=== PATIENT | male | born 1975 | race Hispanic/Latino ===

== ENCOUNTER 2017-05-07 19:24 | Inpatient (IN) | payer OTHER ==
[2017-05-07] MEDS ORDERED: NA CHLORIDE 0.9% 1,000 ML ONE (19:40)
[2017-05-07] MEDS ORDERED: RSI MEDICATION KIT IV ONE (19:40)
[2017-05-07 20:07] LABS: Absolute Lymphocytes (CBC) 3.9 K/uL (0.7-4.9); Absolute Monocytes 0.9 K/uL (0.1-1.3); Absolute Neutrophil 10.1 K/uL (1.8-8.0); Basophils % 1.7 % (0-1.3); Eosinophils % 3.2 % (0-4.4); Hematocrit 38.7 % (39.6-49.0); Lymphocytes % 24.9 % (15.3-44.8); MCH 30.6 pg (27.0-35.0); MCV 94.2 fL (80-100); MPV 9.9 fL (7.6-11.3); Monocytes % 5.8 % (3.3-12.3); RBC Red Blood Cell Count 4.11 M/uL (4.33-5.43)
[2017-05-07 20:10] LABS: Protime INR 0.96
--- NOTE | 2017-05-07 20:21 | RAD REPORT ---
EXAM DESCRIPTION: RAD - Chest Single View - 05/07/2017 8:14 pm CLINICAL HISTORY: Respiratory distress. COMPARISON: None. FINDINGS: Portable technique limits examination quality. Bilateral pulmonary opacities are noted, greater on the right, likely representing pulmonary edema. T he heart is moderately enlarged in size. Right-sided venous catheter has tip in the SVC. No displaced fractures. IMPRESSION: Moderate CHF versus volume overload pattern.
[2017-05-07 20:22] LABS: Potassium 5.4 mEq/L (3.6-5.0)
[2017-05-07 20:32] LABS: Albumin 3.2 g/dL (3.2-5.5); Bilirubin Direct 0.1 mg/dL (0-0.2); Bilirubin Total 0.5 mg/dL (0.3-1.2); CKMB Creatine Kinase MB 9.6 ng/ml (0.3-4.0); Magnesium 2.3 mg/dL (1.8-2.5); Protein, Total 7.4 g/dL (6.0-8.3)
[2017-05-07] MEDS ORDERED: PROPOFOL 1,000 MG/100 ML VIAL IV ONE (20:44)
[2017-05-07] MEDS ORDERED: MIDAZOLAM HCL 2 MG/2 ML INJ ONE ×3 (20:44→23:14)
--- NOTE | 2017-05-07 20:45 | EDPHYS ---
Physician Documentation [facility] Name: Jann De Jesus Age: 41 yrs Sex: Male : 1975 Arrival Date: 05/07/2017 Time: 19:35 Bed 3 Private MD: ED Physician Sim Pelayo HPI: 05/07 20:04 This 41 yrs old Male presents to ER via EMS with complaints of Respiratory Distress. tw4 20:04 The patient has shortness of breath at rest. Onset: The symptoms/episode began/occurred tw4 today. Duration: The symptoms are continuous, and are unchanged since they started, and are steadily getting worse. The patient's shortness of breath has no apparent modifying factors. Associated signs and symptoms: The patient has no apparent associated signs or symptoms. Severity of symptoms: At their worst the symptoms were severe in the emergency department the symptoms have improved mildly. The patient has experienced a previous episode. The patient has not recently seen a physician. Historical: - Allergies: 19:42 No Known Allergies; fc - Home Meds: 19:42 Lasix Oral [Active]; Amaryl Oral [Active]; calcium [Active]; Tums Oral [Active]; Plavix fc Oral [Active]; - PMHx: 19:42 Hypertension; CHF; Diabetes - NIDDM; ESRD; Hypocalcemia; fc - PSHx: 19:42 Heart stents; Right chest wall zofia; fc - Immunization history:: Last tetanus immunization: unknown. - Social history:: Smoking status: Patient/guardian denies using tobacco. ROS: 20:04 Constitutional: Negative for fever, chills, and weight loss, Cardiovascular: Negative tw4 for chest pain, palpitations, and edema, Abdomen/GI: Negative for abdominal pain, nausea, vomiting, diarrhea, and constipation, Back: Negative for injury and pain, MS/Extremity: Negative for injury and deformity, Skin: Negative for injury, rash, and discoloration. 20:04 Respiratory: Positive for cough, dyspnea on exertion, shortness of breath, wheezing, Negative for hemoptysis, orthopnea, pleurisy. Exam: 20:04 Constitutional: This is a well developed, well nourished patient who is awake, alert, tw4 and in no acute distress. Head/Face: Normocephalic, atraumatic. Chest/axilla: Normal chest wall appearance and motion. Nontender with no deformity. No lesions are appreciated. Cardiovascular: Regular rate and rhythm with a normal S1 and S2. No gallops, murmurs, or rubs. Normal PMI, no JVD. No pulse deficits. 20:04 Abdomen/GI: Soft, non-tender, with normal bowel sounds. No distension or tympany. No guarding or rebound. No evidence of tenderness throughout. Back: No spinal tenderness. No costovertebral tenderness. Full range of motion. MS/ Extremity: Pulses equal, no cyanosis. Neurovascular intact. Full, normal range of motion. Neuro: Awake and alert, GCS 15, oriented to person, place, time, and situation. Cranial nerves II-XII grossly intact. Motor strength 5/5 in all extremities. Sensory grossly intact. Cerebellar exam normal. Normal gait. 20:04 Respiratory: moderate respiratory distress is noted, Respirations: labored breathing, that is moderate, accessory muscle usage, that is moderate. Vital Signs: 19:20 BP 201 / 122; Pulse 128; Resp 24; Temp 97.7(A); Pulse Ox 90% on 100% CPAP; Weight 120.2 fc kg (R); Height 5 ft. 5 in. (165.10 cm) (R); Pain 0/10; 19:50 BP 137 / 87; Pulse 107; Resp 30; Pulse Ox 100% on BiPAP; aa1 20:15 BP 121 / 77; Pulse 110; Resp 32; Pulse Ox 100% on BiPAP; aj1 20:20 BP 153 / 78; Pulse 106; Resp 28; Pulse Ox 100% on BiPAP; aj1 20:24 BP 225 / 122; Pulse 133; Resp 23; Pulse Ox 100% on ETT vent; aj1 20:30 BP 245 / 142; Pulse 135; Resp 18; Pulse Ox 96% on ETT vent; aj1 20:33 BP 220 / 108; Pulse 120; Resp 18; Pulse Ox 98% on ETT vent; aj1 20:35 BP 102 / 91; Pulse 107; Resp 19; Pulse Ox 96% on ETT vent; aj1 20:45 BP 123 / 78; Pulse 107; Resp 18; Pulse Ox 96% on ETT vent; aj1 20:52 BP 123 / 78; Pulse 106; Resp 16; Pulse Ox 97% on ETT vent; aj1 21:22 BP 98 / 51; Pulse 103; Resp 16; Temp 96.6(C); Pulse Ox 100% on R/A; aa1 21:43 BP 140 / 80; Pulse 102; Resp 18; Temp 98.4(C); Pulse Ox 100% on ETT vent; aa1 21:57 BP 101 / 79; Pulse 167; Resp 16; Temp 98.6(C); Pulse Ox 100% on ETT vent; aa1 22:06 BP 111 / 70; Pulse 99; Resp 16; Pulse Ox 100% on ETT vent; aa1 22:37 BP 143 / 93; Pulse 114; Resp 16; Pulse Ox 100% on ETT vent; aa1 23:00 BP 110 / 76; Pulse 113; Resp 16; Temp 98.7(C); Pulse Ox 100% on ETT vent; aa1 19:20 Body Mass Index 44.10 (120.20 kg, 165.10 cm) fc 21:57 MD notified of change in cardiac rhythm aa1 Procedures: 20:58 Intubation: Ventilated with 100% NRB prior to procedure. O2 saturation prior to tw4 procedure was 98 %. Intubated orally using # 4 Miki blade with 7.5 mm ETT. was successful on first attempt. Ventilated with Ambu bag. Tube secured with ETT medina at left side of mouth measured 26 cm at teeth. Placement verified by CXR, CO2 detector with (+) color change, auscultating bilateral breath sounds, O2 saturation after procedure was 100 %. Patient tolerated well. MDM: 19:40 Patient medically screened. tw4 20:04 Differential diagnosis: Anemia asthma, CHF exacerbation, pneumonia, pulmonary edema, tw4 reactive airway disease, Sepsis. Antibiotic administration: Not indicated. Data reviewed: vital signs, nurses notes. 22:27 Data interpreted: playground monitor: rhythm is normal sinus rhythm, Pulse oximetry: tw4 Interpretation: normal. Physician consultation: Michaela Pedraza MD and will see patient in ED, would like consultation with Dr. Dr Emerson contacted at [phone] will schedule dialysis for tonight in the ICU. ED course: Pt intubated successfully without any difficulty. Pt sedation started with Propofol and Versed 2mg was added for sedation. ED course: Pt went into V tach and ws given 150 amiodarone and a drip was started. . 05/07 19:38 Order name: Basic Metabolic Panel; Complete Time: 20:41 tc3 05/07 19:38 Order name: BNP; Complete Time: 20:41 tc3 05/07 19:38 Order name: CBC with Diff; Complete Time: 20:09 tc3 05/07 19:38 Order name: Ckmb; Complete Time: 20:41 tc3 05/07 19:38 Order name: CPK; Complete Time: 20:41 tc3 05/07 19:38 Order name: LFT's; Complete Time: 20:41 tc3 05/07 19:38 Order name: Magnesium; Complete Time: 20:41 tc3 05/07 19:38 Order name: PT-INR; Complete Time: 20:30 tc3 05/07 19:38 Order name: Ptt, Activated; Complete Time: 20:30 tc3 05/07 19:38 Order name: Troponin (emerg Dept Use Only); Complete Time: 20:30 tc3 05/07 20:55 Order name: ABG Arterial Blood Gas; Complete Time: 20:58 EDMS 05/07 20:58 Order name: ABG Arterial Blood Gas EDMS 05/07 22:16 Order name: CMP tw4 05/07 22:32 Order name: ABG Arterial Blood Gas EDMS 05/07 19:38 Order name: XRAY Chest (1 view); Complete Time: 20:30 tc3 05/07 19:38 Order name: EKG; Complete Time: 19:39 tc3 05/07 19:38 Order name: Cardiac monitoring; Complete Time: 19:39 tc3 05/07 19:38 Order name: EKG - Nurse/Tech; Complete Time: 19:39 tc3 05/07 19:38 Order name: IV Saline Lock; Complete Time: 19:39 tc3 05/07 20:32 Order name: Chest Single View XRAY; Complete Time: 20:58 tw4 05/07 19:38 Order name: Labs collected and sent; Complete Time: 19:39 tc3 05/07 19:38 Order name: O2 Per Protocol; Complete Time: 19:39 tc3 05/07 19:38 Order name: O2 Sat Monitoring; Complete Time: 19:39 tc3 Administered Medications: 20:21 Drug: Etomidate 20 mg Route: IVP; Site: left forearm; aj1 20:25 Follow up: Response: No adverse reaction; Marked relief of symptoms aa1 20:22 Drug: Succinylcholine 100 mg Route: IVP; Site: left forearm; aj1 20:25 Follow up: Response: No adverse reaction; Marked relief of symptoms aa1 20:28 Drug: Propofol 5 mcg/kg/min Route: IV; Rate: calculated rate; Site: left forearm; aj1 23:00 Follow up: IV Status: Infusion continued upon admission aa1 20:32 Drug: Versed 2 mg Route: IVP; Site: left forearm; aj1 21:00 Follow up: Response: No change in condition aa1 20:32 Drug: Versed 2 mg Route: IVP; Site: left forearm; aj1 21:00 Follow up: Response: No adverse reaction; No change in condition aa1 21:00 Drug: fentaNYL (PF) 100 mcg Route: IVP; Site: right forearm; aj 21:15 Follow up: Response: No adverse reaction; No change in condition aa1 21:15 Drug: Versed 4 mg Route: IVP; Site: left forearm; aa1 21:30 Follow up: Response: No adverse reaction; Marked relief of symptoms aa1 21:55 Drug: VecuroNIUM 10 mg Route: IVP; Site: right antecubital; aa1 22:05 Follow up: Response: Marked relief of symptoms aa1 22:00 Drug: amiodarone 150 mg Route: IVP; Site: right forearm; aa1 22:10 Follow up: Response: Cardiac rhythm changed aa1 22:07 Drug: amiodarone 900 mg, D5W 500 ml Route: IVPB; Rate: 1 mg/min; Site: right forearm; aa1 23:00 Follow up: IV Status: Infusion continued upon admission aa1 Disposition: 05/07/17 20:44 Hospitalization ordered by Michaela Pedraza for Inpatient Admission. Preliminary diagnosis are Respiratory failure, unspecified, Pulmonary edema, End stage renal disease. - Bed requested for Intensive Care Unit. - Status is Inpatient Admission. aa1 - Condition is Serious. - Problem is an ongoing problem. - Symptoms have worsened. UTI on Admission? No Signatures: Dispatcher [employer] EDKari Rothman RN RN aj1 Kayla Graham RN RN aa1 Bonita Melton RN RN aj Aleta Mayfield, [employer] SALES ENGINEER-C [employer] SALES ENGINEER-Csnw Homa Newman, RN RN fc Triston Peña PA PA jr8 Katya Knapp RN RN tc3 Sim Pelayo MD MD tw4
--- NOTE | 2017-05-07 20:45 | ER ---
Nurse's Notes [facility] Name: Jann De Jesus Age: 41 yrs Sex: Male : 1975 Arrival Date: 05/07/2017 Time: 19:35 Bed 3 Private MD: Diagnosis: Respiratory failure, unspecified;Pulmonary edema;End stage renal disease Presentation: 05/07 19:20 Presenting complaint: EMS states: that pt started to have resp distress so was fc bringing him to hospital. He is dialysis pt. MWF and did go this past Monday. Has right chest wall Yaya. Pt see Chair at [facility]. Transition of care: patient was not received from another setting of care. Onset of symptoms was May 07, 2017 at 19:00. Care prior to arrival: CPAP. 19:20 Acuity: DAVIS 1 19:20 Method Of Arrival: EMS: [facility] fc Historical: - Allergies: 19:42 No Known Allergies; fc - Home Meds: 19:42 Lasix Oral [Active]; Amaryl Oral [Active]; calcium [Active]; Tums Oral [Active]; Plavix fc Oral [Active]; - PMHx: 19:42 Hypertension; CHF; Diabetes - NIDDM; ESRD; Hypocalcemia; fc - PSHx: 19:42 Heart stents; Right chest wall yaya; fc - Immunization history:: Last tetanus immunization: unknown. - Social history:: Smoking status: Patient/guardian denies using tobacco. Screenin:25 Abuse screen: Denies threats or abuse. Denies injuries from another. Nutritional tc3 screening: No deficits noted. Tuberculosis screening: No symptoms or risk factors identified. Fall Risk None identified. Assessment: 19:25 General: Appears distressed, uncomfortable, obese, Behavior is cooperative, appropriate aa1 for age, anxious. Pain: Denies pain. Neuro: Level of Consciousness is awake, alert, obeys commands, Oriented to person, place, time, situation, Appropriate for age Speech is normal. Cardiovascular: Heart tones S1 S2 present Rhythm is sinus tachycardia. 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 the patient has severe shortness of breath. GI: No signs and/or symptoms were reported involving the gastrointestinal system. : No signs and/or symptoms were reported regarding the genitourinary system. EENT: No signs and/or symptoms were reported regarding the EENT system. Derm: Skin is intact, is healthy with good turgor, Skin is diaphoretic, Skin is flushed, Skin temperature is cool. Musculoskeletal: Circulation, motion, and sensation intact. Capillary refill < 3 seconds. 19:40 Reassessment: MD at bedside discussing intubation with pt and spouse. Pt states he does aa1 not want to be intubated bc he is afraid he will not wake up. 20:20 Reassessment: No changes from previously documented assessment. Patient and/or family aa1 updated on plan of care and expected duration. Pain level reassessed. MD at bedside with pt \T\ spouse discussing repeat ABG. Pt \T\ spouse consent to intubation at this time. 21:21 Reassessment: Patient appears in no apparent distress at this time. Patient and/or aa1 family updated on plan of care and expected duration. Pain level reassessed. at bedside. Awaiting admission to ICU. 21:57 Reassessment: Pt cardiac rhythm converted to Vtach, notified and arrived at bedside. aa1 Pt placed on cardiac pads and repeat EKG done. 22:30 Reassessment: Patient appears in no apparent distress at this time. Reassessment: ICU aa1 states they are ready to receive pt. Bedside report will be given upon arrival to unit. Neuro: Level of Consciousness is unresponsive, pt under sedation protocol. Respiratory: Airway via oral intubation Respiratory pattern is regular, symmetrical. Derm: Skin is pink, warm \T\ dry. Vital Signs: 19:20 BP 201 / 122; Pulse 128; Resp 24; Temp 97.7(A); Pulse Ox 90% on 100% CPAP; Weight 120.2 fc kg (R); Height 5 ft. 5 in. (165.10 cm) (R); Pain 0/10; 19:50 BP 137 / 87; Pulse 107; Resp 30; Pulse Ox 100% on BiPAP; aa1 20:15 BP 121 / 77; Pulse 110; Resp 32; Pulse Ox 100% on BiPAP; aj1 20:20 BP 153 / 78; Pulse 106; Resp 28; Pulse Ox 100% on BiPAP; aj1 20:24 BP 225 / 122; Pulse 133; Resp 23; Pulse Ox 100% on ETT vent; aj1 20:30 BP 245 / 142; Pulse 135; Resp 18; Pulse Ox 96% on ETT vent; aj1 20:33 BP 220 / 108; Pulse 120; Resp 18; Pulse Ox 98% on ETT vent; aj1 20:35 BP 102 / 91; Pulse 107; Resp 19; Pulse Ox 96% on ETT vent; aj1 20:45 BP 123 / 78; Pulse 107; Resp 18; Pulse Ox 96% on ETT vent; aj1 20:52 BP 123 / 78; Pulse 106; Resp 16; Pulse Ox 97% on ETT vent; aj1 21:22 BP 98 / 51; Pulse 103; Resp 16; Temp 96.6(C); Pulse Ox 100% on R/A; aa1 21:43 BP 140 / 80; Pulse 102; Resp 18; Temp 98.4(C); Pulse Ox 100% on ETT vent; aa1 21:57 BP 101 / 79; Pulse 167; Resp 16; Temp 98.6(C); Pulse Ox 100% on ETT vent; aa1 22:06 BP 111 / 70; Pulse 99; Resp 16; Pulse Ox 100% on ETT vent; aa1 22:37 BP 143 / 93; Pulse 114; Resp 16; Pulse Ox 100% on ETT vent; aa1 23:00 BP 110 / 76; Pulse 113; Resp 16; Temp 98.7(C); Pulse Ox 100% on ETT vent; aa1 19:20 Body Mass Index 44.10 (120.20 kg, 165.10 cm) fc 21:57 notified of change in cardiac rhythm aa1 ED Course: 19:20 Arm band placed on Patient placed in an exam room, on a stretcher. fc 19:20 Patient has correct armband on for positive identification. Bed in low position. Call light in reach. Side rails up X2. emergency medicine medical director on. Pulse ox on. NIBP on. 19:20 O2 via BIPAP E of 16, I of 7 and Rate of 12 with fio2 at 100%. 19:22 Initial lab(s) drawn, by ED staff, sent to lab. Inserted saline lock: 20 gauge in left fc forearm, using aseptic technique. ,using aseptic technique. per Kayla HALL. 19:30 EKG done, by ED staff, reviewed by Sim Pelayo MD. tc3 19:35 Patient arrived in ED. fc 19:39 Triage completed. fc 19:40 Sim Pelayo MD is Attending Physician. tw4 19:45 X-ray completed. Portable x-ray completed in exam room. Patient tolerated procedure jw2 well. 19:45 Lab(s) recollected, by me, sent to lab. aa1 19:48 Kayla Graham RN is Primary Nurse. aa1 20:14 XRAY Chest (1 view) In Process Unspecified. EDMS 20:24 Assisted provider with intubation using 7.5 mm ETT via oral route. ET tube secured at aj1 26cm at the teeth. Intubated by Sim Pelayo MD Placement verified by CO2 detector w/ + color change, auscultating bilateral breath sounds, Patient tolerated well. 20:33 Inserted saline lock: 20 gauge in right forearm, using aseptic technique. ,using aj1 aseptic technique. by Seema Torres RN. 20:37 Notified ED physician of a critical lab result(s). creat of 9.16 and cpk of 1270. fc 20:40 14 Sami OG tube; placement confirmed by auscultation of air; pt. tolerate well ar4 without difficulties. 20:42 Chest Single View XRAY In Process Unspecified. EDMS 20:43 Michaela Pedraza MD is Hospitalizing Provider. tw4 21:00 Villa cath inserted, using sterile technique, 16 Fr., by il, balloon inflated, to ar4 gravity drainage, clamped. other Criti-core Villa catheter. 21:20 One-on-one care X 120 minutes. aa1 22:20 One-on-one care X 60 minutes. aa1 22:50 One-on-one care X 30 minutes. aa1 22:50 Patient admitted, IV remains in place. aa1 Administered Medications: 20:21 Drug: Etomidate 20 mg Route: IVP; Site: left forearm; aj1 20:25 Follow up: Response: No adverse reaction; Marked relief of symptoms aa1 20:22 Drug: Succinylcholine 100 mg Route: IVP; Site: left forearm; aj1 20:25 Follow up: Response: No adverse reaction; Marked relief of symptoms aa1 20:28 Drug: Propofol 5 mcg/kg/min Route: IV; Rate: calculated rate; Site: left forearm; aj1 23:00 Follow up: IV Status: Infusion continued upon admission aa1 20:32 Drug: Versed 2 mg Route: IVP; Site: left forearm; aj03 19:00 Follow up: Response: No change in condition aa1 20:32 Drug: Versed 2 mg Route: IVP; Site: left forearm; aj1 :00 Follow up: Response: No adverse reaction; No change in condition aa1 21:00 Drug: fentaNYL (PF) 100 mcg Route: IVP; Site: right forearm; aj 21:15 Follow up: Response: No adverse reaction; No change in condition aa1 21:15 Drug: Versed 4 mg Route: IVP; Site: left forearm; aa1 21:30 Follow up: Response: No adverse reaction; Marked relief of symptoms aa1 21:55 Drug: VecuroNIUM 10 mg Route: IVP; Site: right antecubital; aa1 22:05 Follow up: Response: Marked relief of symptoms aa1 22:00 Drug: amiodarone 150 mg Route: IVP; Site: right forearm; aa1 22:10 Follow up: Response: Cardiac rhythm changed aa1 22:07 Drug: amiodarone 900 mg, D5W 500 ml Route: IVPB; Rate: 1 mg/min; Site: right forearm; aa1 23:00 Follow up: IV Status: Infusion continued upon admission aa1 Outcome: 20:44 Decision to Hospitalize by Provider. tw4 23:00 Patient left the ED. aa1 23:00 Attestation : I agree with the documentation charted by Katia Benitez, student nurse.. aa1 23:00 Admitted to ICU accompanied by nurse, accompanied by tech, family with patient, via stretcher, room 6, with oxygen, on monitor, with chart, Other bedside report given to Lola Tuttle RN 23:00 Condition: stable 23:00 Discharge instructions given to family, Instructed on the need for admit, Demonstrated understanding of instructions. Signatures: Dispatcher [employer] EDMS Kari Cano RN RN aj1 Kayla Graham RN RN aa1 Bonita Melton RN RN aj Homa Newman RN RN fc Wailes, Jenni 2 Katya Knapp RN RN tc3 Sim Pelayo MD MD tw4 Katia Benitez ar4 Corrections: (The following items were deleted from the chart) 19:45 19:20 Presenting complaint: EMS states: that pt started to have resp distress so fc was bringing him to hospital. He is dialysis pt. MWF and did go this past Monday. Has right chest wall Yaya. 20:57 20:35 Pulse 107bpm; Resp 19bpm; Pulse Ox 96% ET / Ventilator; aj1 aj1
--- NOTE | 2017-05-07 20:50 | RAD REPORT ---
EXAM DESCRIPTION: RAD - Chest Single View - 05/07/2017 8:42 pm CLINICAL HISTORY: Respiratory distress. COMPARISON: Earlier study same day FINDINGS: Since the prior study, the patient has been intubated. The tip of the endotracheal tube is above the urban.
[2017-05-07 20:55] LABS: Arterial Blood Carboxyhemoglob 4.5 % (0-1.5); Blood Gas Oxyhemoglobin 91.7 % (94-97); Blood O2 Saturation 96.8 % (92-98.5)
[2017-05-07 20:57] LABS: Arterial Blood Carboxyhemoglob 2.6 % (0-1.5); Blood Gas Oxyhemoglobin 89.7 % (94-97); Blood O2 Saturation 93.1 % (92-98.5)
[2017-05-07] MEDS ORDERED: FENTANYL CITR 100 MCG/2 ML ONE (21:17)
[2017-05-07] MEDS ORDERED: NA CHLORIDE 0.9% 50 ML IV ONE (22:02)
[2017-05-07] MEDS ORDERED: AMIODARONE IN DEXTROSE,ISO-OSM 360 MG/200 ML BAG IV ONE (22:18)
[2017-05-07] MEDS ORDERED: AMIODARONE HCL 150 MG/3 ML INJ IV ONE (22:18)
[2017-05-07 22:30] LABS: Arterial Blood Carboxyhemoglob 2.3 % (0-1.5); Blood O2 Saturation 99.4 % (92-98.5)
[2017-05-07 23:14] LABS: Albumin 3.7 g/dL (3.2-5.5); Bilirubin Total 0.6 mg/dL (0.3-1.2); Protein, Total 8.2 g/dL (6.0-8.3)
[2017-05-07 23:17] VITALS: O2SAT 100
--- NOTE | 2017-05-07 23:21 | P.HP ---
Certification for Inpatient Patient admitted to: Inpatient With expected LOS: >2 Midnights Practitioner: I am a practitioner with admitting privileges, knowledge of patient current condition, hospital course, and medical plan of care. Services: Services provided to patient in accordance with Admission requirements found in Title 42 Section 412.3 of the Code of Federal Regulations Patient History Date of Service: 05/07/17 Reason for admission: acute respiratory failure History of Present Illness: Mr De Jesus is a 41 years old male with history of CAD s/p stenting, ESRD on HD, last time was 2 days ago, DM II, HTN, [place] , when suddenly start feeling with SOB, and become very anxious. According to his , he did not complain of chest pain, dizziness, nausea or vomiting. At arrival to ED the patient was hypertensive, 201/122, tachycardic 122 bpm, O2 sat was 90% on CIPAP with 100% FIO2. The patient conditions did not improved, in fact he become more dyspneic, and subsequently was intubated. Initially family requested to be transferred to [place], where he has all his medical team , however, during his stay in ED, he had a sustained V-Tach episode. His blood pressure was WNL. He was treated with Amiodarone. Then the patient converted back to . At this point, we decided to keep the patient in this hospital, for prompt stabilization, since is not safe to be transferred at this time. - Past Medical/Surgical History -: HTN -: DM II -: ESRD on HD -: CAD -: Yaya catheter placement -: coronary stent - Family History Family History: Reviewed- Non-Contributory - Social History Smoking Status: Current every day smoker CD- Drugs: No Place of Residence: Home Review of Systems is unable to be obtained (patient intubated) Physical Examination - Vital Signs Blood Pressure: 153/78 Pulse: 106 Respirations: 28 - Physical Exam General: Acute distress (due to dyspnea), Other (sedated on ventilator) HEENT: Atraumatic, PERRLA, Mucous membr. moist/pink, EOMI, Sclerae nonicteric Neck: Supple, 2+ carotid pulse no bruit, No LAD, Without JVD or thyroid abnormality Respiratory: Diminished, Crackles/rales (rales bibasilar) Cardiovascular: Normal S1 S2, Irregular heart rate/rhythm Gastrointestinal: Normal bowel sounds, No tenderness Musculoskeletal: No tenderness Integumentary: No rashes Neurological: Normal tone, Sensation intact Lymphatics: No axilla or inguinal lymphadenopathy - Studies Laboratory Data (last 24 hrs) 05/07/17 19:45: PT 11.3, INR 0.96, APTT 24.7 05/07/17 19:45: WBC 15.7 H, Hgb 12.6 L, Hct 38.7 L, Plt Count 332 05/07/17 19:45: B-Natriuretic Peptide 518 H 05/07/17 19:45: Sodium 136, Potassium 5.4 H, BUN 73 H, Creatinine 9.16 H*, Glucose 250 H, Magnesium 2.3, Total Bilirubin 0.5, AST 33, ALT 33, Alkaline Phosphatase 66 Assessment and Plan - Problems (Diagnosis) (1) Pulmonary edema Current Visit: Yes Status: Acute (2) Acute respiratory failure Current Visit: Yes Status: Acute Qualifiers: Respiratory failure complication: hypoxia and hypercapnia Qualified Code(s) : J96.01 - Acute respiratory failure with hypoxia; J96.02 - Acute respiratory failure with hypercapnia; J96.02 - Acute respiratory failure with hypercapnia; J96.02 - Acute respiratory failure with hypercapnia (3) CAD (coronary artery disease) Current Visit: Yes Status: Acute Qualifiers: Coronary Disease-Associated Artery/Lesion type: [place] artery [place] vs. transplanted heart: [place] heart Associated angina: angina presence unspecified Qualified Code(s): I25.10 - Atherosclerotic heart disease of [place] coronary artery without angina pectoris (4) ESRD on hemodialysis Current Visit: Yes Status: Acute (5) Diabetes mellitus Current Visit: Yes Status: Acute Qualifiers: Diabetes mellitus type: type 2 Diabetes mellitus complication status: with unspecified complications Diabetes mellitus ocean transportation intermediary insulin use: without mcc use Qualified Code(s): E11.8 - Type 2 diabetes mellitus with unspecified complications - Plan Mr De Jesus will be admitted to the hospital due to acute respiratory failure secondary to pulmonary edema. Trop I was normal, EKG shows sinus tachycardia with lateral leads ST depression, possible fluid overload. The patient will be transfer to ICU, will continue mechanical ventilation, consult Dr Salmon and also cardiology team. Dr Emerson was consulted as well and already placed emergent HD orders. - Advance Directives Does patient have a Living Will: No Does patient have a Durable POA for Healthcare: No
[2017-05-07] MEDS ORDERED: NOREPINEPHRINE 4mg/D5W 250mL 4 MG/250 ML BAG IV ONE (23:57)
[2017-05-08] MEDS ORDERED: FENTANYL CITR 100 MCG/2 ML ONE (00:12)
[2017-05-08 00:18] LABS: Potassium 7.3 mEq/L (3.6-5.0)
[2017-05-08] MEDS: NOREPINEPHRINE 4 MG in D5W 250 ML IV PRN ×2 (00:30→07:11)
[2017-05-08] MEDS: MIDAZOLAM HCL 100 MG/NS 100 ML IV PRN ×4 (01:00→18:06)
[2017-05-08] MEDS ORDERED: AMIODARONE HCL 450 MG in D5W 241 ML IV SCH (01:04)
[2017-05-08 01:05] VITALS: BMI 46.9
[2017-05-08] MEDS ORDERED: ALBUTEROL 2.5 MG/3 ML NEB SOL NEB ONE ×2 (01:08→02:08)
[2017-05-08] MEDS ORDERED: D50W 25 GM/50 ML SYRINGE IV ONE (01:09)
[2017-05-08] MEDS ORDERED: CALCIUM GLUC 10% INJ 4.65 MEQ in NA CHLORIDE 0.9% 100 ML IV ONE (01:09)
[2017-05-08 01:10] LABS: Potassium 7.8 mEq/L (3.6-5.0)
[2017-05-08] MEDS ORDERED: INSULIN -REGULAR HUMAN 50 UNIT/0.5 ML ML IV ONE (01:10)
[2017-05-08] MEDS ORDERED: FENTANYL CITR 100 MCG/2 ML IV ONE (01:16)
[2017-05-08] MEDS ORDERED: CALCIUM GLUCONATE 1 GM IVPB 1 GM/50 ML BAG IV ONE (01:54)
[2017-05-08] MEDS: FENTANYL CITR 100 MCG/2 ML IV PRN ×2 (04:00→07:15)
[2017-05-08] MEDS ORDERED: NA CHLORIDE 0.9% 1,000 ML ONE (04:20)
[2017-05-08 05:19] LABS: Absolute Lymphocytes (CBC) 1.5 K/uL (0.7-4.9); Absolute Monocytes 0.6 K/uL (0.1-1.3); Absolute Neutrophil 10.4 K/uL (1.8-8.0); Basophils % 0.5 % (0-1.3); Eosinophils % 0.8 % (0-4.4); Hematocrit 31.2 % (39.6-49.0); Lymphocytes % 11.5 % (15.3-44.8); MCH 30.9 pg (27.0-35.0); MCV 91.4 fL (80-100); MPV 9.2 fL (7.6-11.3); Monocytes % 5.1 % (3.3-12.3); RBC Red Blood Cell Count 3.41 M/uL (4.33-5.43)
[2017-05-08 05:48] LABS: Albumin 3.3 g/dL (3.2-5.5); Bilirubin Total 0.8 mg/dL (0.3-1.2); Protein, Total 7.6 g/dL (6.0-8.3)
[2017-05-08 06:01] LABS: Potassium 4.1 mEq/L (3.6-5.0)
[2017-05-08 06:30] LABS: Arterial Blood Carboxyhemoglob 1.4 % (0-1.5); Blood Gas Oxyhemoglobin 97.3 % (94-97); Blood O2 Saturation 99.6 % (92-98.5)
--- NOTE | 2017-05-08 07:56 | EKG ---
Test Date: 2017-05-07 Test Time: 21:05:46 Ice Cream Scooper: GABE MEASUREMENT RESULTS: Intervals: Rate: 101 MT: 192 QRSD: 128 QT: 364 QTc: 471 [place]: P: 24 MT: 192 QRS: 78 T: 74 INTERPRETIVE STATEMENTS: Sinus tachycardia Nonspecific intraventricular block Abnormal ECG Compared to ECG 05/07/2017 21:03:19 Right bundle-branch block no longer present T-wave abnormality no longer present Possible ischemia no longer present Electronically Signed On 05-08-17 07:55:34 CDT by Anderson Smith
--- NOTE | 2017-05-08 07:56 | EKG ---
Test Date: 2017-05-07 Test Time: 21:03:19 Director Of Nurses Registry: GABE MEASUREMENT RESULTS: Intervals: Rate: 144 [place]: QRSD: 164 QT: 374 QTc: 579 [place]: P: FL: QRS: 255 T: 77 INTERPRETIVE STATEMENTS: Ventricular tachycardia Abnormal ECG Compared to ECG 05/07/2017 21:00:19 no significant change from previous ECG Electronically Signed On 05-08-17 07:56:18 CDT by Anderson Smith
--- NOTE | 2017-05-08 07:57 | EKG ---
Test Date: 2017-05-07 Test Time: 21:00:19 Vapor Coater: GABE MEASUREMENT RESULTS: Intervals: Rate: 168 MO: QRSD: 142 QT: 344 QTc: 575 [place]: P: MO: QRS: 247 T: 65 INTERPRETIVE STATEMENTS: Ventricular tachycardia Abnormal ECG Compared to ECG 05/07/2017 19:33:16 Ventricular tachycardia now present Electronically Signed On 05-08-17 07:57:08 CDT by Anderson Smith
--- NOTE | 2017-05-08 07:57 | EKG ---
Test Date: 2017-05-07 Test Time: 18:32:24 Staff Genetic Counselor: MEASUREMENT RESULTS: Intervals: Rate: 117 IN: 150 QRSD: 92 QT: 350 QTc: 488 [place]: P: 27 IN: 150 QRS: 78 T: 134 INTERPRETIVE STATEMENTS: Sinus tachycardia ST & T wave abnormality, consider lateral ischemia Abnormal ECG No previous ECG available for comparison Electronically Signed On 05-08-17 07:57:21 CDT by Anderson Smith
--- NOTE | 2017-05-08 07:57 | EKG ---
Test Date: 2017-05-07 Test Time: 19:33:16 Glue Jointer Feeder: GABE MEASUREMENT RESULTS: Intervals: Rate: 117 [place]: 154 QRSD: 104 QT: 340 QTc: 474 [place]: P: 17 NH: 154 QRS: 87 T: 129 INTERPRETIVE STATEMENTS: Sinus tachycardia Minimal voltage criteria for LVH, may be normal variant Septal infarct, age undetermined ST & T wave abnormality, consider lateral ischemia Abnormal ECG Compared to ECG 05/07/2017 18:32:24 Left ventricular hypertrophy now present Myocardial infarct finding now present ST (T wave) deviation still present Possible ischemia still present Electronically Signed On 05-08-17 07:57:19 CDT by Anderson Smith
--- NOTE | 2017-05-08 08:14 | RAD REPORT ---
EXAM DESCRIPTION: RAD - Chest Single View - 05/08/2017 12:48 am CLINICAL HISTORY: PICC line placement COMPARISON: May 07 FINDINGS: Portable chest was obtained following placement of a left upper extremity PICC line. The c atheter tip is in the brachiocephalic vein midline chest. ETT and NG tube remain in place. Double-lumen central access catheter remains in place. Shallow inspiration film shows bilateral pleural and parenchymal opacification similar to the compari son.
[2017-05-08] MEDS ORDERED: SUCCINYLCHOLINE 20 MG/ML (10 ML) IV ONE (08:20)
[2017-05-08] MEDS ORDERED: ETOMIDATE 20 MG/10 ML VIAL IV ONE (08:21)
[2017-05-08] MEDS ORDERED: WATER FOR INJ,STERILE 10 ML IV ONE (08:21)
--- NOTE | 2017-05-08 08:22 | P.CNS ---
Date of Consult: 05/08/17 Reason for Consult: Respiratory failure Chief Complaint: acute respiratory failure History of Present Illness: Patient is 41 years of age visiting from [place] developed respiratory distress admitted to the hospital he has has renal failure on dialysis he was also hypokalemic hypercapnic hypoxic acidotic is currently alert responsive cooperative on a ventilator currently has a cyst on his back active smoker Allergies No Known Allergies Allergy (Verified 05/08/17 01:07) Home Medications: Aspirin [Aspirin EC 81 MG] 81 mg PO DAILY 05/08/17 Atorvastatin Calcium [Lipitor] 80 mg PO DAILY 05/08/17 Calcium Acetate [Calcium Acetate] 2 tab PO TID 05/08/17 Carvedilol [Carvedilol] 25 mg PO BID 05/08/17 Cephalexin [Cephalexin] 500 mg PO TID 05/08/17 Cholecalciferol (Vitamin D3) [Vitamin D 5,000 IU Cap*] 1 cap PO SEECOM 05/08/17 Clopidogrel Bisulfate [Plavix] 75 mg PO DAILY 05/08/17 Furosemide [Furosemide] 40 mg PO DAILY 05/08/17 Glimepiride [Glimepiride] 4 mg PO BID 05/08/17 Hydralazine [Apresoline] 25 mg PO TID 05/08/17 Ibuprofen [Motrin*] 2 tab PO Q6HP PRN 05/08/17 - Past Medical/Surgical History Diabetic: Yes -: HTN -: DM II -: ESRD on HD -: CAD -: CHF -: anemia -: LA -: Yaya catheter placement -: coronary stent - Family History Father Medical History: Cancer Mother Medical History: Heart disease Sister Medical History: Heart disease, Diabetes, Cancer - Social History Alcohol use: No CD- Drugs: No Caffeine use: Yes Place of Residence: Home Review of Systems is unable to be obtained Physical Examination Temp Pulse Resp BP Pulse Ox 99.6 F 84 20 113/73 100 05/08/17 06:30 05/08/17 07:00 05/08/17 06:30 05/08/17 07:00 05/08/17 07:00 General: Alert, Moderate distress Neck: Supple Respiratory: Clear to auscultation bilaterally, Friction rub Cardiovascular: Regular rate/rhythm Gastrointestinal: Normal bowel sounds, Soft and benign Musculoskeletal: No clubbing, No contractures Integumentary: Skin lesion Laboratory Data (last 24 hrs) 05/07/17 19:45: PT 11.3, INR 0.96, APTT 24.7 05/07/17 19:45: WBC 15.7 H, Hgb 12.6 L, Hct 38.7 L, Plt Count 332 05/07/17 19:45: B-Natriuretic Peptide 518 H 05/07/17 19:45: Sodium 136, Potassium 5.4 H, BUN 73 H, Creatinine 9.16 H*, Glucose 250 H, Magnesium 2.3, Total Bilirubin 0.5, AST 33, ALT 33, Alkaline Phosphatase 66 - Problems (1) Respiratory failure Current Visit: Yes Status: Acute Plan: Patient is 41 years of age admitted with the respiratory distress most likely volume overload scarred end-stage renal disease he was also hyperkalemia white count mildly elevated chest x-ray possible volume overload than 40% oxygen plan to wean off and extubate once he has had dialysis needs potassium corrected patient had an episode of V-tach patient has Bernard lesion an ulcer in the midback patient's oxygenation is satisfactory is only on 40% oxygen hemodynamically stable possible wean and extubate after dialysis for possible I and D Qualifiers: Chronicity: acute (2) Skin aging Current Visit: Yes Status: Acute (3) Skin abscess Current Visit: Yes Status: Acute Plan: It appears to have a skin abscess in the mid posterior back consult general surgery I have added vancomycin Zosyn
[2017-05-08] MEDS ORDERED: Pharmacy Consult 1 EA XX PRN (08:23)
[2017-05-08] MEDS ORDERED: LIDOCAINE 5% OINT 30 GM TUBE TOP PRN (08:24)
[2017-05-08] MEDS ORDERED: PROPOFOL 1,000 MG/100 ML VIAL IV PRN (08:30)
[2017-05-08] MEDS: DIPHENHYDRAMINE 50 MG/ML VIAL IV PRN ×2 (08:37→18:14)
[2017-05-08] MEDS: LORazepam 2 MG/ML VIAL IV PRN ×5 (08:38→20:18)
[2017-05-08] MEDS: AMIODARONE HCL 450 MG in D5W 241 ML IV SCH ×2 (08:49→21:22)
[2017-05-08] MEDS: PIPER/TAZO/NS 2.25gm 2.25 GM/50 ML BAG IVPB SCH ×2 (08:49→17:07)
[2017-05-08] MEDS ORDERED: VANCOMYCIN/NS 1 gm 1 GM/250 ML BAG IV SCH (09:00)
[2017-05-08] MEDS ORDERED: ENOXAPARIN 100 MG/ML SYR SQ SCH (09:00)
--- NOTE | 2017-05-08 09:00 | CON ---
Chief Complaint: Ventricular tachycardia. History Of Present Illness: Mr. De Jesus is a gentleman, who has numerous chronic medical illnesses. He has underlying diabetes, hypertension, chronic renal failure, and chronic hemodialysis. He татьяна lly has all of his care done at [place]. He has a history of intracoronary stents. Not sure about o ther kinds of heart trouble. He has been diagnosed with congestive heart failure. When he came to [facility], he was dyspneic. His initial pH was 7.2, pCO2 52. Three minutes later, the pH was 7.03 and pCO2 of 86, so he basically stopped breathing. He was intubated. His most recent pH was 7.49. While he was very acidotic with the respiratory acidosis, he had a wide-complex arrhythmia right bun dle-branch type morphology with right superior axis and every way, I think it is ventricular tachycar ketan. He is in sinus rhythm now. He has developed abnormalities of cardiac enzymes. First troponin was 0.03, which was normal, second one was 3.82. The patient apparently had some discomfort in the c hest as well as dyspnea when he came to the ER. All of his care has been done at one of the tertiary care hospitals up in [place]. The family is desiring him to be transferred. Social History: There is no tobacco use presently. Present Medicines: Hydralazine, vitamin D3, Lipitor 80, aspirin, Coreg, calcium acetate, furosemide, cephalexin, glimepiride, Plavix, and ibuprofen. Allergies: NO ALLERGIES ARE NOTED. Physical Examination: Vital Signs: 5 feet 5 inches, 282 pounds. General: He is intubated in the ICU. He is easily arousable. When he awakens, he is complaining of itching, does not seem to be neurological deficit. Lungs: Revealed equal breath sounds bilaterally. Heart exam: Does not reveal a significant murmur. Abdomen: Soft. Extremities: Diminished but palpable distal pulses. Diagnostic Data: His electrocardiogram from this morning shows sinus tachycardia, LVH, septal infarc t, old, nonspecific ST and T-wave abnormality. Impression: The patient had an acute coronary syndrome associated with severe respiratory acidosis, ventricular tachycardia. He will need a cardiac cath, probably revascularization. I think he should be amiodarone until such time that he gets a cardiac cath. We will continue the drip that was start ed last night, and we will make efforts to try and initiate transfer to his usual morning nanny. JESSICA/MATTHEW Voice ID: [id number] Report ID: [id number]
[2017-05-08 09:47] LABS: Potassium 4.2 mEq/L (3.6-5.0)
[2017-05-08 10:09] LABS: A1c Component 0.54 mg/dL; Hemoglobin A1c 6.6 % (4-6.0)
--- NOTE | 2017-05-08 10:28 | ECHO ---
HEIGHT: 5 ft 5 in WEIGHT: 282 lb 3.2 oz DATE OF STUDY: 05/08/[address]: Michaela Rojo MD 2-DIMENSIONAL: YES M.MODE: YES DOPPLER: YES COLOR FLOW: YES TDS: NO PORTABLE: NO DEFINITY: NO BUBBLE STUDY: NO DIAGNOSIS: PULMONARY EDEMA CARDIAC HISTORY: CATHERIZATION: NO SURGERY: NO PROSTHETIC VALVE: NO PACEMAKER: NO MEASUREMENTS (cm) DIASTOLIC (NORMALS) SYSTOLIC (NORMALS) IVSd 1.4 (0.6-1.2) LA Diam 4.3 (1.9-4.0) LVEF 58% LVIDd 4.7 (3.5-5.7) LVIDs 3.3 (2.0-3.5) %FS 30% LVPWd 1.4 (0.6-1.2) Ao Diam 3.0 (2.0-3.7) 2 DIMENSIONAL ASSESSMENT: RIGHT ATRIUM: NORMAL LEFT ATRIUM: DILATED RIGHT VENTRICLE: NORMAL LEFT VENTRICLE: LEFT VENTRICULAR HYPERTROPHY TRICUSPID VALVE: NORMAL MITRAL VALVE: NORMAL PULMONIC VALVE: NORMAL AORTIC VALVE: NORMAL PERICARDIAL EFFUSION: NONE AORTIC ROOT: NORMAL LEFT VENTRICULAR WALL MOTION: NORMAL. DOPPLER/COLOR FLOW: TRACE OF MITRAL AND TRICUSPID REGURGITATION. NORMAL RIGHT VENTRICULAR SYSTOLIC PRESSURE. IMPAIRED LEFT VENTRICULAR RELAXATION. COMMENTS: NORMAL LEFT VENTRICULAR EJECTION FRACTION. LEFT VENTRICULAR HYPERTROPHY. DILATED LEFT ATRIUM. TRACE OF MITRAL AND TRICUSPID REGURGITATION. IMPAIRED LEFT VENTRICULAR RELAXATION. TECHNOLOGIST: BRANT MARKS [facility]
--- NOTE | 2017-05-08 10:47 | P.PN ---
Subjective Date of Service: 05/08/17 Primary Care Provider: Dr. Schmitz; Nephrology-Dr. Tong([facility]) Chief Complaint: acute respiratory failure Subjective: Other (Patient on the ventilator. Patient alert. Patient reports itching to the back.) Physical Examination - Vital Signs Temperature: 99.6 F Blood Pressure: 113/73 Pulse: 84 Respirations: 20 Pulse Ox (%): 100 - Physical Exam General: Alert, In no apparent distress, Oriented x3, Other (Currently intubated.) HEENT: Atraumatic, Mucous membr. moist/pink Neck: Supple Respiratory: Clear to auscultation bilaterally, Normal air movement Cardiovascular: Normal pulses, Regular rate/rhythm Gastrointestinal: Normal bowel sounds, Soft and benign, Non-distended, No masses , No rebound, No guarding, Other (Patient morbidly obese) Musculoskeletal: No tenderness, No warmth Integumentary: Other (There appears to be a cyst like formation to the back. Some irritation noted. No significant erythema around the border. The area is indurated. The area of ulceration appears to be as large in diameter as a quarter.) Neurological: Normal strength at 5/5 x4 extr, Normal tone, Normal affect - Studies Laboratory Data (last 24 hrs) 05/07/17 19:45: PT 11.3, INR 0.96, APTT 24.7 05/07/17 19:45: WBC 15.7 H, Hgb 12.6 L, Hct 38.7 L, Plt Count 332 05/07/17 19:45: B-Natriuretic Peptide 518 H 05/07/17 19:45: Sodium 136, Potassium 5.4 H, BUN 73 H, Creatinine 9.16 H*, Glucose 250 H, Magnesium 2.3, Total Bilirubin 0.5, AST 33, ALT 33, Alkaline Phosphatase 66 Medications List Reviewed: Yes Assessment & Plan - Problems (Diagnosis) (1) Ventricular tachycardia Current Visit: Yes Status: Acute Plan: Patient presented with acute respiratory failure. Patient also found to have hyperkalemia. Patient with multiple medical problems including diabetes, hypertension, CAD, end-stage renal disease on dialysis, morbid obesity. Patient started on IV amiodarone. Patient now in normal sinus rhythm. Patient evaluated by Cardiology. Patient will continue with amiodarone. Patient now with acute coronary syndrome. Patient will need heart catheterization evaluation once stable. Patient may need revascularization. Patient gets all his care at [facility]. Patient and family requests that the patient be transferred for continuity of care. Cardiology and pulmonology agree with transfer. Will initiate transfer. Patient on Lovenox. Will start aspirin and Plavix. Patient also with possible abscess to the back. Vanc and Zosyn initiated. Surgery consulted to further assess. Patient may require intervention but this will likely need to wait until the patient's heart status is addressed. Patient did receive dialysis yesterday due to hyperkalemia and volume overload. This has improved. Ejection fraction 50%. Blood pressure now stable. Patient being weaned off vasopressor. Suspect the patient can be weaned off ventilator today as per pulmonology. (2) Acute coronary syndrome Current Visit: Yes Status: Acute Plan: Patient with acute coronary syndrome. Patient evaluated by Cardiology. Patient on Lovenox, aspirin and Plavix. Lipitor also initiated. Cardiology recommends that the patient have heart catheterization for evaluation and possible revascularization. Family requests transfer. Will initiate transfer. (3) Anemia Current Visit: Yes Status: Chronic Plan: Patient likely with anemia of chronic disease. Will monitor closely. Qualifiers: Anemia type: due to chronic kidney disease Chronic kidney disease stage: on chronic dialysis Qualified Code(s): N18.6 - End stage renal disease; D63.1 - Anemia in chronic kidney disease; D63.1 - Anemia in chronic kidney disease; Z99.2 - Dependence on renal dialysis; Z99.2 - Dependence on renal dialysis; Z99.2 - Dependence on renal dialysis; Z99.2 - Dependence on renal dialysis (4) Acute respiratory failure Onset Date: 05/08/17 Current Visit: Yes Status: Acute Plan: Patient presented with shortness of breath. Patient intubated. This has improved. Pulmonology plans to extubate patient if doing better. Will continue with above plan of care. Patient started on IV antibiotic therapy for abscess to the back. Patient will need to continue with dialysis. Qualifiers: Respiratory failure complication: hypoxia and hypercapnia Qualified Code(s) : J96.01 - Acute respiratory failure with hypoxia; J96.02 - Acute respiratory failure with hypercapnia; J96.02 - Acute respiratory failure with hypercapnia; J96.02 - Acute respiratory failure with hypercapnia (5) CAD (coronary artery disease) Onset Date: 05/08/17 Current Visit: Yes Status: Acute Plan: Patient with acute coronary syndrome. Will continue with above plan of care. Patient will need heart catheterization and possible revascularization. Qualifiers: Coronary Disease-Associated Artery/Lesion type: [place] artery [place] vs. transplanted heart: [place] heart Associated angina: with unstable angina Qualified Code(s): I25.110 - Atherosclerotic heart disease of [place] coronary artery with unstable angina pectoris (6) Diabetes mellitus Onset Date: 05/08/17 Current Visit: Yes Status: Chronic Plan: Will continue with insulin sliding scale. Will monitor closely. A1c 6.6 Qualifiers: Diabetes mellitus type: type 2 Diabetes mellitus complication status: with other specified complication Diabetes mellitus nursing home insulin use: without extermination inspector use Qualified Code(s): E11.69 - Type 2 diabetes mellitus with other specified complication (7) ESRD on hemodialysis Onset Date: 05/08/17 Current Visit: Yes Status: Chronic Plan: Patient did receive dialysis yesterday due to hyperkalemia and volume overload. Potassium improved. Patient will need to be monitored closely. Patient will likely need dialysis scan today. Patient has chronic dialysis on Mondays, Wednesdays and Fridays. (8) Pulmonary edema Onset Date: 05/08/17 Current Visit: Yes Status: Acute Plan: Patient with acute pulmonary edema. Will continue with dialysis. Patient also with acute coronary syndrome. Will continue with above plan of care. Qualifiers: Chronicity: acute Qualified Code(s): J81.0 - Acute pulmonary edema (9) Skin abscess Current Visit: Yes Status: Acute Plan: There is a possible abscess to the back region. There is no significant erythema but induration is noted. Some ulceration noted as well. Will provide IV antibiotic therapy. Surgery consulted to assess further. Patient will need to be cleared by Cardiology. Qualifiers: Site of cutaneous abscess: other site Qualified Code(s): L02.818 - Cutaneous abscess of other sites (10) Hyperkalemia Current Visit: Yes Status: Acute Plan: This has improved with dialysis. Will continue to monitor closely. (11) CHF (congestive heart failure) Current Visit: Yes Status: Suspected Plan: Suspect acute on chronic diastolic CHF. Will continue with dialysis. Will monitor closely. Ejection fraction 58%. Qualifiers: Heart failure type: diastolic Heart failure chronicity: acute on chronic Qualified Code(s): I50.33 - Acute on chronic diastolic (congestive) heart failure Discharge Plan: Transfer Plan to discharge in: 24 Hours Time Spent Managing Pts Care (In Minutes): 55
--- NOTE | 2017-05-08 14:08 | EKG ---
Test Date: 2017-05-08 Test Time: 07:31:43 Bumboater: TYRONE MEASUREMENT RESULTS: Intervals: Rate: 96 CT: 154 QRSD: 84 QT: 412 QTc: 520 [place]: P: 26 CT: 154 QRS: 50 T: 104 INTERPRETIVE STATEMENTS: Normal sinus rhythm ST & T wave abnormality, consider lateral ischemia Prolonged QT Abnormal ECG Compared to ECG 05/07/2017 21:05:46 ST (T wave) deviation now present Possible ischemia now present Prolonged QT interval now present Sinus tachycardia no longer present Electronically Signed On 05-08-17 14:06:37 CDT by Anderson Smith
[2017-05-08] MEDS ORDERED: MANNITOL 25% 12.5 GM/50 ML VIAL IV PRN (17:44)
[2017-05-08] MEDS ORDERED: NA CHLORIDE 0.9% 1,000 ML IV PRN (17:44)
[2017-05-08] MEDS ORDERED: ALBUMIN HUMAN 25% 50 ML IV SCH (18:00)
[2017-05-08] MEDS ORDERED: HYDROCORTISONE 0.5% CREAM 30 GM TOP PRN (18:32)
[2017-05-08] MEDS ORDERED: HYDROCORTISONE 1 % CREAM 30GM TOP PRN (19:00)
[2017-05-08 21:17] VITALS: TEMP 98.4
[2017-05-08] MEDS ORDERED: PROPOFOL 1,000 MG/100 ML VIAL IV ONE (22:52)
[2017-05-08 23:10] VITALS: BP 124/89
--- NOTE | 2017-05-09 00:33 | CON ---
Date of Consultation: 05/08/2017 Chief Complaint: Severe hyperkalemia, fluid overload, end-stage renal disease, pulmonary edema, congestive heart failure, respiratory failure, and hypoxemia. History Of Present Illness: The patient is a 41-year-old man with history of coronary artery disease, diabetes mellitus, end-stage renal disease on dialysis , hypertension. He was admitted to ICU last night because of severe shortness of breath, respiratory failure, and decompensated congestive heart failure. On arrival to the emergency room, he was very hypertensive. He had hypertensive emergency and had tachycardia. He was started on CPAP with FiO2 100%. Subsequently, he developed cardiac arrhythmia and was intubated. The patient was admitted to ICU. Primarily potassium of 5.3, although subsequently potassium was up to 7.3, and 7.8. Emergent dialysis was started for fluid management to treat congestive heart failure and to control hyperkalemia. The patient remains intubated and received dialysis last night with ultrafiltration. Review of Systems: Unobtainable. The patient is intubated, cannot provide review of systems. Past Medical History: Hypertension, diabetes mellitus type 2, end-stage renal disease on hemodialysis via the tunneled dialysis catheter, coronary artery disease, and coronary stent. Family History: Unobtainable. Social History: History of tobacco. Review of Systems: Unobtainable. The patient is intubated. Physical Examination: General: The patient remains intubated. Eyes: Anicteric sclerae. No hemorrhagic changes. Ears, Nose, Mouth, and Throat: No edema. No oozing. Respiratory: Crackles bilaterally. Heart: S1, S2. Irregular rate and rhythm. GI: Abdomen obese. Bowel sounds present. Extremities: Some edema. No clubbing. No cyanosis. Musculoskeletal: No joint effusion. Neurological: Moving extremities. Cranial nerves intact. Psychiatric: He is agitated and intubated. Moving extremity. Laboratory Data: Sodium 134, potassium 7.8, chloride 99, CO2 21, BUN 80, creatinine 9.81, calcium 6.7, glucose 266. Troponin is 16.8, albumin is 3.3. Hemoglobin 10.5, WBC 12.6, platelet count is 287,000. Impression And Plan: 1. Severe congestive heart failure, pulmonary edema, respiratory failure, hypoxemia. Primary on arrival to the hospital, potassium level was 5.3, although emergent dialysis was scheduled because of shortness of breath and congestive heart failure. Follow up blood work at 10 O'clock pm show potassium 7.3. The patient was already started on dialysis and then 1K potassium dialyzate was initiated when lab results showed severe hyperkalemia. The patient received emergent hemodialysis and ultrafiltration treatment was done last night to treat severe hyperkalemia and to obtain negative fluid balance with ultrafiltration to treat severe congestive heart failure with respiratory failure caused by pulmonary edema . Potassium level this morning was 4.2. The patient remains fluid overloaded and is to have dialysis and ultrafiltration. dialysis parameters adjusted according to the condition with coronary artery disease and elevated troponin. 2. Anemia, monitor hemoglobin level. 3. Coronary artery disease. The patient is to have cardiac catheterization. 4. Hypertension, uncontrolled. The patient will have IV medication as needed for blood pressure control. EDMUND/MATTHEW Voice ID: [id number] Report ID: [id number] MARISSA
[2017-05-09] MEDS ORDERED: BACITRACIN OINTMENT 15 GM TUBE TOP SCH (01:00)
[2017-05-09] MEDS ORDERED: ATORVASTATIN 80 MG TAB PO SCH (09:00)
[2017-05-09] MEDS ORDERED: ASPIRIN EC 81 MG TAB PO SCH (09:00)
[2017-05-09] MEDS ORDERED: CLOPIDOGREL 75 MG TABLET PO SCH (09:00)
--- NOTE | 2017-05-09 11:16 | P.DS ---
Admission Date: 05/07/17 Discharge Date: 05/09/17 Primary Care Provider: Dr. Schmitz; Nephrology-Dr. Tong([facility]) Disposition: [facility] Discharge Condition: SERIOUS Reason for Admission: acute respiratory failure Consultations: Cardiology-Dr. Smith Pulmonary-Dr. Salmon Nephrology-Dr. Emerson Procedures: Echo: Ejection fraction 58%. Left ventricular hypertrophy. Dilated left atrium. Trace mitral and tricuspid regurgitation. Impaired left ventricular relaxation. - Problems (1) Ventricular tachycardia Status: Acute (2) Acute coronary syndrome Status: Acute (3) Anemia Status: Chronic Qualifiers: Anemia type: due to chronic kidney disease Chronic kidney disease stage: on chronic dialysis Qualified Code(s): N18.6 - End stage renal disease; D63.1 - Anemia in chronic kidney disease; D63.1 - Anemia in chronic kidney disease; Z99.2 - Dependence on renal dialysis; Z99.2 - Dependence on renal dialysis; Z99.2 - Dependence on renal dialysis; Z99.2 - Dependence on renal dialysis (4) Acute respiratory failure Onset Date: 05/08/17 Status: Acute Qualifiers: Respiratory failure complication: hypoxia and hypercapnia Qualified Code(s) : J96.01 - Acute respiratory failure with hypoxia; J96.02 - Acute respiratory failure with hypercapnia; J96.02 - Acute respiratory failure with hypercapnia; J96.02 - Acute respiratory failure with hypercapnia (5) CAD (coronary artery disease) Onset Date: 05/08/17 Status: Acute Qualifiers: Coronary Disease-Associated Artery/Lesion type: [place] artery [place] vs. transplanted heart: [place] heart Associated angina: with unstable angina Qualified Code(s): I25.110 - Atherosclerotic heart disease of [place] coronary artery with unstable angina pectoris (6) Diabetes mellitus Onset Date: 05/08/17 Status: Chronic Qualifiers: Diabetes mellitus type: type 2 Diabetes mellitus retirement insulin use: without long term care phlebotomist use Diabetes mellitus complication status: with other specified complication Qualified Code(s): E11.69 - Type 2 diabetes mellitus with other specified complication (7) ESRD on hemodialysis Onset Date: 05/08/17 Status: Chronic (8) Pulmonary edema Onset Date: 05/08/17 Status: Acute Qualifiers: Chronicity: acute Qualified Code(s): J81.0 - Acute pulmonary edema (9) Skin abscess Status: Acute Qualifiers: Site of cutaneous abscess: other site Qualified Code(s): L02.818 - Cutaneous abscess of other sites (10) Hyperkalemia Status: Acute (11) CHF (congestive heart failure) Status: Suspected Qualifiers: Heart failure type: diastolic Heart failure chronicity: acute on chronic Qualified Code(s): I50.33 - Acute on chronic diastolic (congestive) heart failure Brief History of Present Illness: 41-year-old male presented emergency room with increasing shortness of breath. Patient has multiple medical problems including CAD, hypertension, end- stage renal disease on dialysis, and diabetes. The patient was found to be hypertensive upon arrival. Patient was also tachycardic and tachypneic. Patient required BiPAP upon initial evaluation. Patient also found to be severely acidotic. Patient was intubated in the emergency room due to respiratory failure. Likely from volume overload. The patient was admitted to ICU for further treatment. Patient was given dialysis due to hyperkalemia Hospital Course: During the course of his stay the patient had elevated troponin indicating acute coronary syndrome. This is likely from hyperkalemia causing ventricular tachycardia which led to acute coronary syndrome. Patient also has underlying complex diagnosis of end-stage renal disease on dialysis, diabetes, hypertension , coronary artery disease, anemia of chronic disease. The patient was also found to have an ulcer to the back. The patient was initially to be transferred from the ER to [place] as the family requested transfer since there recently from [place]. This was not successful. Once the patient was stable I was able to get in contact with the primary care team. I was able to speak to a hospitalist at [facility]. They were willing to accept the patient. Hospitalist recommended that the patient remain intubated. The patient has been seen by Cardiology. Due to the acute coronary syndrome. The patient will need heart catheterization to further assess. This can be done once the patient is stable. This was addressed in detail with the hospitalist. As mentioned above the patient presented with metabolic acidosis, hyperkalemia. This led to ventricular tachycardia. The patient continued with IV amiodarone. He has been on normal sinus rhythm since that time. The patient did receive dialysis due to the hyperkalemia. This has resolved. Patient with end-stage renal disease on dialysis. As mentioned above patient received dialysis. Patient was seen by nephrology. Patient will need to continue with dialysis. Patient has history of diabetes. Patient will continue with sliding scale Patient with history of hypertension. Blood pressures improved. Patient will need to continue with medication and dialysis for better control. Patient with acute respiratory failure likely from volume overload. Suspected diastolic CHF noted. Echocardiogram shows ejection fraction of 58%. Patient will continue with diuresis and dialysis. Once this has improved the patient can be extubated. The patient did have an ulcer to the back. This did not appear significantly erythematous. Once the patient has been cleared by cardiology. Surgery will need to assess this further. Patient may require debridement. Patient continues with IV antibiotic therapy. The patient was eventually transferred through the night. Patient to continue care at [facility] Vital Signs/Physical Exam: Temp Pulse Resp BP Pulse Ox 98.4 F 74 18 124/89 100 05/08/17 20:00 05/08/17 22:15 05/08/17 22:15 05/08/17 22:30 05/08/17 22:15 Patient seen earlier in the day. Please refer to physical exam. Laboratory Data at Discharge: WBC 12.6 K/uL (4.3-10.9) H D 05/08/17 05:00 Hgb 10.5 g/dL (13.6-17.9) L 05/08/17 05:00 Hct 31.2 % (39.6-49.0) L D 05/08/17 05:00 Plt Count 287 K/uL (152-406) 05/08/17 05:00 PT 11.3 SECONDS (9.5-12.5) 05/07/17 19:45 INR 0.96 05/07/17 19:45 APTT 24.7 SECONDS (24.3-36.9) 05/07/17 19:45 Sodium 141 mEq/L (135-145) 05/08/17 09:14 Potassium 4.2 mEq/L (3.6-5.0) 05/08/17 09:14 BUN 57 mg/dL (6-20) H 05/08/17 09:14 Creatinine 7.87 mg/dL (0.61-1.24) H* D 05/08/17 09:14 Glucose 112 mg/dL (65-120) 05/08/17 09:14 Magnesium 2.3 mg/dL (1.8-2.5) 05/07/17 19:45 Total Bilirubin 0.8 mg/dL (0.3-1.2) 05/08/17 05:00 AST 56 IU/L (10-42) H 05/08/17 05:00 ALT 33 IU/L (10-60) 05/08/17 05:00 Alkaline Phosphatase 59 IU/L (42-121) 05/08/17 05:00 Troponin I 19.87 ng/mL (<0.03) H* D 05/08/17 17:03 B-Natriuretic Peptide 518 pg/ml (<=100) H 05/07/17 19:45 Triglycerides 262 mg/dL (35-160) H 05/08/17 05:00 Cholesterol 168 mg/dL (<200) 05/08/17 05:00 HDL Cholesterol 27 mg/dL (27-67) 05/08/17 05:00 Cholesterol/HDL Ratio 6.22 05/08/17 05:00 Home Medications: Aspirin [Aspirin EC 81 MG] 81 mg PO DAILY 05/08/17 Atorvastatin Calcium [Lipitor] 80 mg PO DAILY 05/08/17 Calcium Acetate [Calcium Acetate] 2 tab PO TID 05/08/17 Carvedilol [Carvedilol] 25 mg PO BID 05/08/17 Cephalexin [Cephalexin] 500 mg PO TID 05/08/17 Cholecalciferol (Vitamin D3) [Vitamin D 5,000 IU Cap*] 1 cap PO SEECOM 05/08/17 Clopidogrel Bisulfate [Plavix] 75 mg PO DAILY 05/08/17 Furosemide [Furosemide] 40 mg PO DAILY 05/08/17 Glimepiride [Glimepiride] 4 mg PO BID 05/08/17 Hydralazine [Apresoline] 25 mg PO TID 05/08/17 Ibuprofen [Motrin*] 2 tab PO Q6HP PRN 05/08/17 Patient Discharge Instructions: Patient transferred to [facility] for continuity of care and continued management as requested by family. Continue with plan of care. Patient was still intubated upon transfer Time spent managing pt's care (in minutes): 55
[2017-05-10 13:50] LABS: HBsAG Nonreactive (Nonreactive)
== END 2017-05-08 22:44 | disposition short-term general hospital (02) | DRG 208 ==
LOC: ER 19:24 → EDBD 19:24 → UNDOADMIN 20:44 → ERHOLD 20:44 → 3RD-ICU 22:42
PROVIDERS: ADMIT Internal Medicine; ATTEND Internal Medicine
PROC: 5A1935Z Respiratory Ventilation, Less than 24 Consecutive Hours (ICD-10-PCS; principal; 2017-05-07)
PROC: 0BH17EZ Insertion of Endotracheal Airway into Trachea, Via Natural or Artificial Opening (ICD-10-PCS; 2017-05-07)
PROC: 5A1D70Z Performance of Urinary Filtration, Intermittent, Less than 6 Hours Per Day (ICD-10-PCS; 2017-05-07)
PROC: 5A1D70Z Performance of Urinary Filtration, Intermittent, Less than 6 Hours Per Day (ICD-10-PCS; 2017-05-08)
PROC: 02HV33Z Insertion of Infusion Device into Superior Vena Cava, Percutaneous Approach (ICD-10-PCS; 2017-05-08)
DX: J96.01 Acute respiratory failure with hypoxia (principal); N18.6 End stage renal disease; I50.33 Acute on chronic diastolic (congestive) heart failure; I47.2 Ventricular tachycardia; L02.212 Cutaneous abscess of back [any part, except buttock and flank]; I13.2 Hypertensive heart and chronic kidney disease with heart failure and with stage 5 chronic kidney disease, or end stage renal disease; J96.02 Acute respiratory failure with hypercapnia; I25.10 Atherosclerotic heart disease of native coronary artery without angina pectoris; E11.22 Type 2 diabetes mellitus with diabetic chronic kidney disease; E87.5 Hyperkalemia; D63.1 Anemia in chronic kidney disease; F17.200 Nicotine dependence, unspecified, uncomplicated; Z99.2 Dependence on renal dialysis
CPT/HCPCS: 31500; 36415; 51702; 71045; 80048; 80053; 80061; 80076; 80202; 82550; 82553; 82805; 82962; 83036; 83735; 83880; 84484; 85025; 85610; 85730; 86704; 86706; 86803; 87040; 87070; 87205; 87340; 90935; 93005; 93306; 94002; 94640; 99291; J0282; J0330; J0610; J1650; J2250; J3010; J7030; J7060